=== PATIENT | male | born 1945 ===

== ENCOUNTER 2022-06-20 15:01 | Outpatient (CLI) | payer OTHER, SELFPAY ==
--- NOTE | 2022-06-20 15:12 | USCV_ITS ---
Robin Avendaño Age: 77 Gender: M : 1945 Exam Date: 06/20/2022 15:21 Ordering Phys: Mehreen Wheeler Technologist: PAPITO Exam Location: [facility] [place] Indication: AAA Screening HISTORY: Diameter (cm) AP x Transverse x Length Velocity (cm/s) Waveform Prox Aorta: 0.00 x 1.88 x 70.90 Triphasic Mid Aorta: 1.90 x 1.90 x 40.60 Triphasic Distal Aorta: 1.72 x 1.51 x 114.90 Triphasic Right Iliac Prox: 1.25 x 1.02 x 50.70 Triphasic Left Iliac Prox: 1.32 x 0.92 x 117.10 Triphasic Stent Prox Landing x x Aneurysmal Sac Max x x Lt Lat Sac Dim Rt Lat Sac Dim Stent Dist Landing x x Right Iliac Stent x x Left Iliac Stent x x Right Renal Art Left Renal Art FINDINGS: Comparison: none available. Limited assessment of the abdominal aorta due to body habitus. Ectatic abdominal aorta with evidence of atherosclerotic plaque noted. There is evidence of atherosclerotic plaque no significan stenosis in the right common iliac artery. There is evidence of atherosclerotic plaque no significan stenosis in the left common iliac artery. CONCLUSIONS No evidence of abdominal aortic aneurysm. Dr. Jacqui Ellis DO (Electronically Signed) Final Date: 20 June 2022 16:17 S
== END 2022-06-20 15:02 | disposition home or self-care (01) ==
LOC: RAD 15:07
PROVIDERS: PCP Family Medicine; Visit Provider Nurse Practitioner
DX: Z13.6 Encounter for screening for cardiovascular disorders (principal)
CPT/HCPCS: 76706